=== PATIENT | male | born 1990 | race Caucasian/White ===

== ENCOUNTER 2020-11-19 12:19 | Emergency (ER) | payer SELFPAY ==
[2020-11-19 12:21] VITALS: BP 137/94; PULSE 93; RESP 16; TEMP 36.8; O2SAT 94; BMI 35.5
--- NOTE | 2020-11-19 12:24 | W.ED.EYEPROB ---
HPI - Eye Problem General: Chief complaint: Eye Problems Stated complaint: chili pepper in eyes Time Seen by Provider: 11/19/20 12:23 History of Present Illness: HPI Narrative: Patient states he got possible exposure chili pepper in his eyes. Patient states that he had rubbed chili pepper on his dogs collar. Patient said then after he was handling dog he rubbed his eye and his eye get irritated and then he rubbed his other eye and it got irritated now he says his eyes hurt. chief complaint: eye pain and eye redness Onset (ago): minute(s) Onset description: sudden Duration: constant Location: both eyes Eye Symptoms: burning and redness Place: home Mechanism: other (Exposure to chili pepper off the dog's collar.) Severity: mild Severity scale (1-10): 2 If Pain, Quality: burning Associated symptoms: Reports no associated symptoms; Denies fever(s) Treatments Prior to Arrival: none Review of Systems Const: Denies: fever(s) or body aches Eyes: Reports: eye discomfort Psych: Reports: anxiety Physical Exam Const: COMMON NORMALS: no acute distress Eye: EYELID: eyelids normal CONJUNCTIVA: Yes conjunctival abnormal positive bilateral Psych: COMMON NORMALS: mental status grossly normal Course Vital Signs: Vital signs: Vital Signs Temperature 98.2 F 11/19/20 12:21 Pulse Rate 93 11/19/20 12:21 Respiratory Rate 16 11/19/20 12:21 Blood Pressure 137/94 11/19/20 12:21 Pulse Oximetry 94 11/19/20 12:21 MDM - Eye Problem MDM Narrative: Medical decision making narrative: Patient responded well with the milk to his eyes pain completely gone. Eyes red. Vision is fine. Discharge Plan Discharge Patient Disposition: Home Clinical Impression: Chemical insult, eye Qualifiers: Encounter type: initial encounter Laterality: unspecified laterality Qualified Code(s): T26.90XA - Corrosion of unspecified eye and adnexa, part unspecified, initial encounter Condition: Stable Discharge Orders: Discharge ED (Routine); Ordered 11/19/20 Ordered By: Tab Han Discharge Diet: Usual diet Discharge Activity: Resume usual activity Activity Restrictions/Additional Instructions: Follow-up with eye doctor if any continued problems with the eyes after today. Did not get chili pepper capsaicin in your eyes. Coding Level of Care Code ED Surveillance Sensor Officer for Ross Fwd Exam Expanded Problem Focused
--- NOTE | 2020-11-19 13:05 | PC.NURSE ---
eye copiously irrigated in eye wash station and then milked flushed through both eyes. Patient reports that pain is down from 10 to a 2 and improving.
== END 2020-11-19 13:08 | disposition home or self-care (01) ==
LOC: ER 13:09
PROVIDERS: Emergency Provider Nurse Practitioner Family
DX: T26.90XA Corrosion of unspecified eye and adnexa, part unspecified, initial encounter (principal)
CPT/HCPCS: 99281

== ENCOUNTER 2025-02-27 01:31 | Emergency (ER) | payer SELFPAY ==
[2025-02-27 01:35] VITALS: BP 148/100; PULSE 95; RESP 16; TEMP 36.6; O2SAT 97; BMI 36.8
[2025-02-27 02:03] LABS: Hematocrit 46.9 % (37-53); Hemoglobin 15.30 g/dL (11.27-16.99); Mean Corpuscular HGB Conc 32.6 g/dL (30-55); Mean Corpuscular Hemoglobin 27.6 pg (27-33); Mean Corpuscular Volume 84.5 fl (82-101); Nucleated Red Blood Cells % 0 %; Platelet Count 318 10^3/cmm (157-399); Red Blood Count 5.55 10^6/uL (3.85-5.65); White Blood Count 9.24 10^3/uL (3.29-11.43)
[2025-02-27] MEDS: ondansetron 2 mg/ML SDV 2 mL 4 MG IVP (02:05)
--- NOTE | 2025-02-27 02:06 | XRR_ITS ---
PROCEDURE INFORMATION: Exam: XR Chest Exam date and time: 02/27/2025 2:16 AM Age: 34 years old Clinical indication: Other: Overdose, vomiting TECHNIQUE: Imaging protocol: Radiologic exam of the chest. Views: 1 view. COMPARISON: No relevant prior studies available. FINDINGS: Lungs: Unremarkable. No consolidation. Pleural spaces: Unremarkable. No pleural effusion. No pneumothorax. Heart/Mediastinum: Unremarkable. No cardiomegaly. Bones/joints: Unremarkable. XR/XR chest 1V portable [id number] IMPRESSION: No acute findings.
[2025-02-27 02:23] LABS: Alanine Aminotransferase 10 U/L (0-41); Albumin Level 4.5 g/dL (3.5-5.2); Alkaline Phosphatase 76 U/L (40-130); Anion Gap 18.1 (5-19); Aspartate Amino Transferase 14 U/L (0-40); Blood Urea Nitrogen 19 mg/dL (6-20); Calcium 8.9 mg/dL (8.5-10.5); Carbon Dioxide 24 mmol/L (22-29); Chloride 102 mmol/L (98-107); Globulin 3.0 g/dL (1.3-4.6); Glucose 136 mg/dL (65-115); Osmolality Calculated 296 mOsm/kg (285-295); Potassium 3.1 mmol/L (3.5-5.1); Sodium 141 mmol/L (136-145); Total Protein 7.5 g/dL (6.6-8.7)
[2025-02-27 02:25] LABS: Creatinine Clr Calc Pharmacy 98.5759
[2025-02-27] MEDS: haloperidol inj 5 mg/mL INJ 1 mL 3 MG IVP (02:27)
[2025-02-27 02:37] LABS: Alcohol Level < 10 mg/dL (0-10); Lipase 55 U/L (13-60)
--- NOTE | 2025-02-27 03:17 | ED_ITS ---
HPI - Nausea/Vomiting/Diarrhea 2 General: Chief complaint: Nausea/Vomiting/Diarrhea Stated complaint: OD THC Time Seen by Provider: 02/27/25 02:05 History of Present Illness: 34-year-old male patient who evidently t ook 1000 mg of THC gummy earlier in the morning. He started to violently vomit. He is mildly confused. He was brought in by a friend. He does not complain of stomach pain. He complains of intense nausea. He has vomited copious amounts of emesis in the emergency department. Related Data Allergies Allergy/AdvReac Type Severity Reaction Status Date / Time banana Allergy ALGY-Anaphy Verified 11/19/20 12:46 laxis Physical Exam 2 Const: GENERAL APPEARANCE: anxious and disheveled HENMT: COMMON NORMALS: normocephalic, atraumatic and Normal external nose present HEAD & SCALP: normocephalic and atraumatic FACE & SINUS: normal facial exam and face symmetric NOSE: Normal external nose present Eye: COMMON NORMALS: Equal, round and reactive pupils present and EOMs intact bilaterally PUPIL: Yes Equal, round and reactive pupils present Neck/C-Spine: GENERAL: Yes trachea midline Chest: CHEST: Yes Symmetrical chest wall rise Resp: COMMON NORMALS: normal respiratory effort, No retractions, No use of accessory muscles and clear to auscultation bilaterally AUSCULTATION: clear to auscultation bilaterally Cardio: COMMON NORMALS: regular rate and regular rhythm RATE: regular rate RHYTHM: regular rhythm GI: COMMON NORMALS: Normal to inspection, nondistended, normoactive bowel sounds present Extremity: COMMON NORMALS: no pedal edema Neuro: BLAYNE COMA SCALE: document GCS findings Blayne coma scale eye opening: Spontaneous Porter coma scale verbal response: Orientated Porter coma scale motor response: Obey commands Blayne coma scale total score: 15 S ENSORY EXAM: Yes extremities (intact) Psych: COMMON NORMALS: speech normal SPEECH: Yes normal speech Skin: COMMON NORMALS: no rashes or lesions noted GENERAL SKIN EXAM: no rashes or lesions noted Course 2 Vital Signs: Vital signs: Vital Signs Temperature 97.8 F 02/27/25 01:35 Pulse Rate 81 02/27/25 03:30 Respiratory Rate 14 02/27/25 03:30 Blood Pressure 103/57 02/27/25 03:30 Pulse Oximetry 98 02/27/25 03:30 Oxygen Delivery Me thod Room Air 02/27/25 03:30 MDM - Nausea/Vomiting/Diarrhea Medical Decision Making Patient is minimally altered. He answers all orientation questions appropriately such as time, date, president, location, etc. And 1 point, he got up, tore his IV out, and was requesting to leave. I confirmed the patient and ask him to stay given his slightly altered state, and propensity to continue to vomit. He was given IV Haldol prior to a rip in his IV. He is a bit more calm now. BMP is normal. Potassium is 3.1 with a creatinine of 1.5. His CRP is 3. Alcohol level is negative. Lipase is 55. Chest x-ray is nonacute. Urine drug screen and urinalysis are pending. He will rest, we will continue to monitor. He will be discharged when nausea is improved as well as mild confusion. Clinically the patient is quite improved. No more episodes of vomiting. His blood pressure is 115/65, saturation is 96% on room air. He will be discharged to home. To return for any worsening symptoms. He is stable at this point. Lab Data 02/27/25 01:50 02/27/25 01:50 Radiology Impressions Chest X-Ray 02/27/25 02:06 IMPRESSION: No acute findings. Laboratory Results WBC 9.24 10^3/uL (3.29-11.43) 02/27/25 01:50 RBC 5.55 10^6/uL (3.85-5.65) 02/27/25 01:50 Hgb 15.30 g/dL (11.27-16.99) 02/27/25 01:50 Hct 46.9 % (37-53) 02/27/25 01:50 MCV 84.5 fl (82-101) 02/27/25 01:50 MCH 27.6 pg (27-33) 02/27/25 01:50 MCHC 32.6 g/dL (30-55) 02/27/25 01:50 RDW 13.2 % (12.1-15.1) 02/27/25 01:50 Plt Count 318 10^3/cmm (157-399) 02/27/25 01:50 MPV 9.4 fL (7.4-10.4) 02/27/25 01:50 Neut % (Auto) 29.5 % 02/27/25 01:50 Lymph % (Auto) 56.3 % 02/27/25 01:50 [place] % (Auto) 9.2 % 02/27/25 01:50 Eos % (Auto) 4.2 % 02/27/25 01:50 Baso % (Auto) 0.5 % 02/27/25 01:50 Neut # (Auto) 2.72 10^3/uL (1.8-7.7) 02/27/25 01:50 Lymph # (Auto) 5.2 10^3/uL (0.8-4.8) H 02/27/25 01:50 [place] # (Auto) 0.9 10^3/uL (0.2-0.9) 02/27/25 01:50 Eos # (Auto) 0.4 10^3/uL (0.0-0.8) 02/27/25 01:50 Baso # (Auto) 0.1 10^3/uL (0.0-0.1) 02/27/25 01:50 Nucleated RBC % (auto) 0 % 02/27/25 01:50 Nucleated RBCs # 0.0 /100WBC 02/27/25 01:50 Sodium 141 mmol/L (136-145) 02/27/25 01:50 Potassium 3.1 mmol/L (3.5-5.1) L 02/27/25 01:50 Chloride 102 mmol/L (98-107) 02/27/25 01:50 Carbon Dioxide 24 mmol/L (22-29) 02/27/25 01:50 Anion Gap 18.1 (5-19) 02/27/25 01:50 BUN 19 mg/dL (6-20) 02/27/25 01:50 Creatinine 1.5 mg/dL (0.7-1.2) H 02/27/25 01:50 GFR Calculation 53.3 mL/min (90-130) L 02/27/25 01:50 Glucose 136 mg/dL (65-115) H 02/27/25 01:50 Calculated Osmolality 296 mOsm/kg (285-295) H 02/27/25 01:50 Calcium 8.9 mg/dL (8.5-10.5) 02/27/25 01:50 Total Bilirubin 0.3 mg/dL (0.15-1.2) 02/27/25 01:50 AST 14 U/L (0-40) 02/27/25 01:50 ALT 10 U/L (0-41) 02/27/25 01:50 Alkaline Phosphatase 76 U/L (40-130) 02/27/25 01:50 C-Reactive Protein 3.0 mg/L (0.0-4.9) 02/27/25 01:50 Total Protein 7.5 g/dL (6.6-8.7) 02/27/25 01:50 Albumin 4.5 g/dL (3.5-5.2) 02/27/25 01:50 Globulin 3.0 g/dL (1.3-4.6) 02/27/25 01:50 Lipase 55 U/L (13-60) 02/27/25 01:50 Ethyl Alcohol < 10 mg/dL (0-10) 02/27/25 01:50 XR interpretation done by ED provider, pending radiology final review Discharge Plan Discharge Patient Disposition: Home Clinical Impression: Drug-induced nausea and vomiting, Accidental cannabis overdose Condition: Stable Discharge Orders: Discharge ED (Routine); Ordered 02/27/25 Ordered By: Paul Quintero Patient Instructions: Acute Nausea and Vomiting (ED), Opioid Safety, Pain Management, Patient Portal & Dion Instructions Activity Restrictions/Additional Instructions: Follow a liquid diet for 12 hours. You may advance your diet as tolerated if no vomiting. Return for worsening vomiting, fever, abdominal pain, mental status changes, any other concerning symptoms Print Language: Thai Coding Level of Care Code ED Packaging Designer for Ross Pham
[2025-02-27 03:30] VITALS: BP 103/57; PULSE 81; RESP 14; O2SAT 98
[2025-02-27 06:31] VITALS: BP 101/50; PULSE 87; RESP 14; O2SAT 95
== END 2025-02-27 06:33 | disposition home or self-care (01) ==
PROVIDERS: Emergency Provider Emergency Medicine
DX: T40.711A Poisoning by cannabis, accidental (unintentional), initial encounter (principal); R11.2 Nausea with vomiting, unspecified; X58.XXXA Exposure to other specified factors, initial encounter
CPT/HCPCS: 36415; 71045; 80053; 80307; 83690; 85025; 86140; 96374; 96375; 99284; J1630; J2405; J7030